=== PATIENT | female | born 2000 | race Caucasian/White ===

== ENCOUNTER 2022-03-08 18:57 | Emergency (ER) | payer OTHER ==
[~2022-03-08] VITALS: Ht 170.2 cm; Wt 102.3 kg
[2022-03-08 19:27] LABS: COVID AG,FIA SOURCE NASAL SWAB
[2022-03-08 19:30] VITALS: BP 128/84
[2022-03-08] MEDS ORDERED: SPIR50TA27 PO (19:31)
[2022-03-08] MEDS ORDERED: NIZO2SH TP (19:38)
[2022-03-08] MEDS ORDERED: IBUP-2070 PO (19:38)
== END 2022-03-08 21:19 | disposition home or self-care (01) ==
LOC: EMS 19:01
DX: Z20.822 Contact with and (suspected) exposure to COVID-19 (principal)
CPT/HCPCS: 99283